=== PATIENT | female | born 1990 | race Caucasian/White ===

== ENCOUNTER 2018-10-02 12:15 | Outpatient (CLI) | payer OTHER ==
[2018-10-02 13:50] LABS: ADD MAN DIFF? NO
[2018-10-02 13:52] LABS: WHITE BLOOD COUNT 8.9 10^3/ul (4.8-10.8)
[2018-10-02 13:52] LABS: BASOPHILS % 0.1 % (0.0-2.0); EOSINOPHILS # 0.1 10^3/ul (0.0-0.5); EOSINOPHILS % 0.9 % (0.0-7.0); HEMATOCRIT 30.5 % (37.0-47.0); HEMOGLOBIN 10.3 g/dl (12.0-16.0); LYMPHOCYTES # 1.4 10^3/ul (0.8-2.9); LYMPHOCYTES % 15.4 % (15.0-51.0); MEAN CORPUSCULAR HEMOGLOBIN 28.1 pg (29.0-33.0); MEAN CORPUSCULAR HGB CONC 33.8 g/dl (32.0-37.0); MEAN CORPUSCULAR VOLUME 83.1 fl (82.0-101.0); MEAN PLATELET VOLUME 10.6 fl (7.4-10.4); MONOCYTE # 0.4 10^3/ul (0.3-0.9); MONOCYTES % 4.5 % (0.0-11.0); NEUTROPHILS % 78.5 % (39.0-77.0); PLATELET COUNT 229 10^3/UL (140-415); RED BLOOD COUNT 3.67 10^6/ul (4.20-5.40); RED CELL DISTRIBUTION WIDTH 14.5 % (11.5-14.5)
[2018-10-02 14:14] LABS: RUPTURE FETAL MEMBRANES NEGATIVE (NEGATIVE)
[2018-10-02] MEDS: LACTATED RINGER'S 1,000 ML IV (14:24)
[2018-10-02] MEDS ORDERED: LACTATED RINGER'S 1,000 ML IV (14:30)
== END 2018-10-02 17:00 | disposition home or self-care (01) ==
LOC: OBT 12:15 → L-D 12:15 → OBT 17:00
DX: O41.93X0 Disorder of amniotic fluid and membranes, unspecified, third trimester, not applicable or unspecified (principal); Z3A.38 38 weeks gestation of pregnancy
CPT/HCPCS: 36415; 76815; 76818; 84112; 85025; 96360; 96361

== ENCOUNTER 2018-10-06 20:47 | Inpatient (IN) | payer OTHER ==
[2018-10-07] MEDS ORDERED: MISOPROSTOL 200 MCG TAB PR (07:00)
[2018-10-07] MEDS ORDERED: CARBOPROST 250 MCG INJ IM (07:00)
[2018-10-07] MEDS ORDERED: METHYLERGONOVINE 0.2 MG INJ IM (07:00)
[2018-10-07] MEDS ORDERED: LIDOCAINE 1% (MPF) 30 ML INJ INJ (07:00)
[2018-10-07] MEDS ORDERED: OXYTOCIN 30 UNITS/LR 500 ML IV (07:00)
[2018-10-07] MEDS ORDERED: BUTORPHANOL 2 MG INJ IV (07:00)
[2018-10-07 08:11] LABS: ADD MAN DIFF? NO
[2018-10-07 08:18] LABS: BASOPHILS % 0.2 % (0.0-2.0); EOSINOPHILS # 0.1 10^3/ul (0.0-0.5); EOSINOPHILS % 1.2 % (0.0-7.0); HEMATOCRIT 29.7 % (37.0-47.0); HEMOGLOBIN 9.8 g/dl (12.0-16.0); LYMPHOCYTES # 1.6 10^3/ul (0.8-2.9); MEAN CORPUSCULAR HEMOGLOBIN 27.8 pg (29.0-33.0); MEAN CORPUSCULAR VOLUME 84.4 fl (82.0-101.0); MEAN PLATELET VOLUME 11.2 fl (7.4-10.4); MONOCYTE # 0.4 10^3/ul (0.3-0.9); NEUTROPHIL # 5.9 10^3/ul (1.6-7.5); NEUTROPHILS % 73.1 % (39.0-77.0); PLATELET COUNT 225 10^3/UL (140-415); RED BLOOD COUNT 3.52 10^6/ul (4.20-5.40); RED CELL DISTRIBUTION WIDTH 14.6 % (11.5-14.5)
[2018-10-07 08:18] LABS: WHITE BLOOD COUNT 8.1 10^3/ul (4.8-10.8)
[2018-10-07 08:37] LABS: INR 0.95; PROTIME 12.8 Sec (11.9-14.9)
[2018-10-07 08:38] LABS: PARTIAL THROMBOPLASTIN TIME 28.6 Sec (23.0-35.0)
[2018-10-07 09:10] LABS: HEPATITIS B SURFACE ANTIGEN NEGATIVE (NEGATIVE)
[2018-10-07] MEDS: LACTATED RINGER'S 1,000 ML IV ×3 (10:50→20:11)
[2018-10-07] MEDS: OXYTOCIN 30 UNITS/LR 500 ML IV (10:52)
[2018-10-07] MEDS ORDERED: FENTAnyl 2MCG/ML-ROPIV 0.2% 100 ML (19:20)
[2018-10-07] MEDS ORDERED: DIPHENHYDRAMINE 50 MG INJ IV (19:30)
[2018-10-07] MEDS ORDERED: ONDANSETRON 4 MG INJ IV (19:30)
[2018-10-07] MEDS ORDERED: NALOXONE (0.4 MG/ML) INJ IV (19:30)
[2018-10-07] MEDS: ROPIVACAINE 0.2% 100ML BAG EPI (20:09)
[2018-10-07 20:40] LABS: RAPID PLASMA REAGIN NONREACTIVE (NR)
[2018-10-08] MEDS: LACTATED RINGER'S 1,000 ML IV (00:01)
[2018-10-08] MEDS ORDERED: FENTAnyl 2MCG/ML-ROPIV 0.2% 100 ML (02:11)
[2018-10-08] MEDS: FENTAnyl 2MCG/ML-ROPIV 0.2% 100 ML BAG EPI (02:22)
[2018-10-08] MEDS: OXYTOCIN 30 UNITS/LR 500 ML IV ×3 (04:21→09:19)
[2018-10-08] MEDS: IBUPROFEN 600 MG TAB PO ×2 (04:41→17:46)
[2018-10-08] MEDS: LACTATED RINGER'S 1,000 ML IV* ×3 (06:07→22:07)
[2018-10-08] MEDS ORDERED: CARBOPROST 250 MCG INJ IM (06:30)
[2018-10-08] MEDS ORDERED: HYDROCODONE/APAP (5/325) TAB PO (06:30)
[2018-10-08] MEDS ORDERED: MAGNESIUM HYDROXIDE 30ML CUP PO (06:30)
[2018-10-08] MEDS ORDERED: METHYLERGONOVINE 0.2 MG INJ IM (06:30)
[2018-10-08] MEDS ORDERED: ONDANSETRON 4 MG INJ IV (06:30)
[2018-10-08] MEDS ORDERED: METHYLERGONOVINE 0.2 MG TAB PO (06:30)
[2018-10-08] MEDS ORDERED: MISOPROSTOL 200 MCG TAB PR (06:30)
[2018-10-08] MEDS ORDERED: ZOLPIDEM 5 MG TAB PO (06:30)
[2018-10-08] MEDS ORDERED: IBUPROFEN 600 MG TAB PO (06:30)
[2018-10-08] MEDS ORDERED: DIPHENHYDRAMINE 25 MG CAP PO (06:30)
[2018-10-08] MEDS ORDERED: NA PHOSPHATE/BIPHOS 133 ML ENEMA PR (06:30)
[2018-10-08] MEDS ORDERED: OXYTOCIN 30 UNITS/LR 500 ML IV (06:30)
[2018-10-08] MEDS: WITCH HAZEL/GLYCERIN PAD PR (09:18)
[2018-10-08] MEDS: LANOLIN HPA 1 PKT TOP (09:18)
[2018-10-08] MEDS: SENNA/DOCUSATE NA (8.6MG/50MG) TAB PO ×2 (09:18→21:50)
[2018-10-08] MEDS: BENZOCAINE 20% 56 ML SPRAY TOP (09:19)
[2018-10-08] MEDS: HYDROCODONE/APAP (5/325) TAB PO (13:08)
[2018-10-09] MEDS: LACTATED RINGER'S 1,000 ML IV* ×2 (06:07→14:07)
[2018-10-09 08:48] LABS: ADD MAN DIFF? NO
[2018-10-09] MEDS: SENNA/DOCUSATE NA (8.6MG/50MG) TAB PO ×2 (08:49→20:38)
[2018-10-09 08:51] LABS: WHITE BLOOD COUNT 9.8 10^3/ul (4.8-10.8)
[2018-10-09 08:51] LABS: BASOPHILS % 0.3 % (0.0-2.0); EOSINOPHILS # 0.1 10^3/ul (0.0-0.5); HEMATOCRIT 27.4 % (37.0-47.0); LYMPHOCYTES # 1.8 10^3/ul (0.8-2.9); LYMPHOCYTES % 18.5 % (15.0-51.0); MEAN CORPUSCULAR HEMOGLOBIN 28.2 pg (29.0-33.0); MEAN CORPUSCULAR HGB CONC 32.8 g/dl (32.0-37.0); MEAN CORPUSCULAR VOLUME 85.9 fl (82.0-101.0); MEAN PLATELET VOLUME 10.9 fl (7.4-10.4); MONOCYTE # 0.4 10^3/ul (0.3-0.9); MONOCYTES % 4.4 % (0.0-11.0); NEUTROPHIL # 7.3 10^3/ul (1.6-7.5); NEUTROPHILS % 75.1 % (39.0-77.0); PLATELET COUNT 216 10^3/UL (140-415); RED BLOOD COUNT 3.19 10^6/ul (4.20-5.40); RED CELL DISTRIBUTION WIDTH 14.5 % (11.5-14.5)
[2018-10-09] MEDS: MAGNESIUM HYDROXIDE 30ML CUP PO (20:38)
[2018-10-09] MEDS: BISACODYL 10 MG SUPP PR (20:38)
[2018-10-09] MEDS: BENZOCAINE 20% 56 ML SPRAY TOP (20:59)
[2018-10-10] MEDS ORDERED: DIPHTH/TET/ACEL PERTUSS (ADULT) 0.5 ML VIAL IM* (09:00)
[2018-10-10] MEDS: VARICELLA VACCINE LIVE/PF 1,350 UNIT/0.5 ML ML SC* (09:00)
[2018-10-10 11:19] LABS: ADD MAN DIFF? NO
[2018-10-10 11:21] LABS: BASOPHILS % 0.1 % (0.0-2.0); EOSINOPHILS # 0.1 10^3/ul (0.0-0.5); EOSINOPHILS % 1.6 % (0.0-7.0); HEMATOCRIT 26.8 % (37.0-47.0); HEMOGLOBIN 8.9 g/dl (12.0-16.0); LYMPHOCYTES # 1.4 10^3/ul (0.8-2.9); LYMPHOCYTES % 16.2 % (15.0-51.0); MEAN CORPUSCULAR HEMOGLOBIN 28.3 pg (29.0-33.0); MEAN CORPUSCULAR HGB CONC 33.2 g/dl (32.0-37.0); MEAN CORPUSCULAR VOLUME 85.4 fl (82.0-101.0); MEAN PLATELET VOLUME 10.2 fl (7.4-10.4); MONOCYTE # 0.4 10^3/ul (0.3-0.9); MONOCYTES % 4.6 % (0.0-11.0); NEUTROPHIL # 6.8 10^3/ul (1.6-7.5); NEUTROPHILS % 76.8 % (39.0-77.0); PLATELET COUNT 234 10^3/UL (140-415); RED BLOOD COUNT 3.14 10^6/ul (4.20-5.40); RED CELL DISTRIBUTION WIDTH 14.2 % (11.5-14.5)
[2018-10-10 11:21] LABS: WHITE BLOOD COUNT 8.8 10^3/ul (4.8-10.8)
[2018-10-10] MEDS: SENNA/DOCUSATE NA (8.6MG/50MG) TAB PO (11:35)
[2018-10-10] MEDS: LANOLIN HPA 1 PKT TOP (11:36)
[2018-10-10] MEDS: IBUPROFEN 600 MG TAB PO (11:36)
[2018-10-10] MEDS: WITCH HAZEL/GLYCERIN PAD PR (11:36)
[2018-10-10] MEDS: MEASLES,MUMPS,RUBELLA VACCINE INJ SC* (14:27)
== END 2018-10-10 14:55 | disposition home or self-care (01) | DRG 807 ==
LOC: OBT 20:47 → PP1 10-08 06:19 → L-D 20:47
PROVIDERS: Obstetrics & Gynecology
PROC: 10E0XZZ Delivery of Products of Conception, External Approach (ICD-10-PCS; principal; 2018-10-08)
DX: O80 Encounter for full-term uncomplicated delivery (principal); Z37.0 Single live birth; Z3A.39 39 weeks gestation of pregnancy
CPT/HCPCS: 62322; 76815; 76816; 85025; 85610; 85730; 86592; 86850; 86900; 86901; 87340; 90716